=== PATIENT | male | born 1960 ===

== ENCOUNTER 2018-12-06 18:41 | Emergency (ER) | payer MEDICARE, OTHER, SELFPAY ==
[2018-12-06 18:46] VITALS: RESP 20
[2018-12-06] MEDS ORDERED: Sodium Chloride 0.9% 1,000 ML IV STA (19:29)
--- NOTE | 2018-12-06 19:35 | ED PDOC ---
HPI: Abdomen Time Seen by Provider: 12/06/18 19:19 Chief Complaint (Nursing): Abdominal Pain Chief Complaint (Provider): Abdominal Pain History Per: Patient History/Exam Limitations: no limitations Onset/Duration Of Symptoms: Days Current Symptoms Are (Timing): Still Present Location Of Pain/Discomfort: Periumbilical Additional Complaint(s): 58 y/o male with no significant PMHx presents to the ED for evaluation of abdominal pain associated with nausea, vomiting and diarrhea, onset last night. Patient reports of having about 4 episodes of non-bloody vomiting and multiple episodes of watery, non-bloody diarrhea. Otherwise, patient denies fever, sick contacts, recent travel and antibiotics. PMD: Bunny Chung Past Medical History Reviewed: Historical Data, Nursing Documentation, Vital Signs Vital Signs: Last Vital Signs Temp 97.9 F 12/06/18 18:43 Pulse 112 H 12/06/18 18:43 Resp 20 12/06/18 18:43 BP 147/73 12/06/18 18:43 Pulse Ox 98 12/06/18 18:43 - Medical History PMH: Diabetes, HTN, Hypercholesterolemia Denies: Chronic Kidney Disease - Surgical History Surgical History: No Surg Hx - Family History Family History: States: Unknown Family Hx - Social History Alcohol: Social - Immunization History Hx Tetanus Toxoid Vaccination: No Hx Influenza Vaccination: Yes Hx Pneumococcal Vaccination: No - Home Medications Home Medications: Ambulatory Orders Medication Instructions Recorded Meclizine [Meclizine*] 25 mg PO Q6 PRN #30 tab 11/22/16 Glimepiride [Amaryl] 4 mg PO BID 11/23/16 Linagliptin [Tradjenta] 5 mg PO DAILY 11/23/16 Lisinopril [Zestril] 2.5 mg PO DAILY 11/23/16 MetFORMIN [glucoPHAGE] 1,000 mg PO BID 11/23/16 Simvastatin 10 mg PO DAILY 11/23/16 Aspirin 81 mg PO DAILY #1 tab 11/26/16 Ciprofloxacin HCl [Cipro] 500 mg PO BID #14 tab 12/06/18 Dicyclomine [Dicyclomine HCl] 10 mg PO TID PRN #15 cap 12/06/18 Metronidazole [Flagyl] 500 mg PO BID #14 tablet 12/06/18 Ondansetron ODT [Zofran ODT] 4 mg PO Q8 PRN #12 odt 12/06/18 - Allergies Allergies/Adverse Reactions: Allergies Allergy/AdvReac Type Severity Reaction Status Date / Time No Known Allergies Allergy Verified 12/06/18 18:46 Review of Systems ROS Statement: Except As Marked, All Systems Reviewed And Found Negative Constitutional: Negative for: Fever Gastrointestinal: Positive for: Nausea, Vomiting, Abdominal Pain, Diarrhea Physical Exam - Reviewed Nursing Documentation Reviewed: Yes Vital Signs Reviewed: Yes - Physical Exam Appears: Positive for: No Acute Distress Head Exam: Positive for: ATRAUMATIC, NORMOCEPHALIC Skin: Positive for: Normal Color, Warm, Dry Eye Exam: Positive for: Normal appearance, EOMI, PERRL Neck: Positive for: Normal, Painless ROM, Supple Cardiovascular/Chest: Negative for: Bradycardia Respiratory: Negative for: Accessory Muscle Use, Respiratory Distress Gastrointestinal/Abdominal: Positive for: Tenderness (mild periumbilical tenderness) Extremity: Positive for: Normal ROM. Negative for: Deformity Neurologic/Psych: Positive for: Alert, Oriented. Negative for: Motor/Sensory Deficits - Laboratory Results Result Diagrams: 12/06/18 19:56 12/06/18 19:56 - ECG O2 Sat by Pulse Oximetry: 98 (RA) Pulse Ox Interpretation: Normal - Progress Re-evaluation Time: 22:33 Condition: Re-examined, Improved Medical Decision Making Medical Decision Making: Time: 1844 Impression: Abdominal pain, nausea, vomiting and diarrhea. Differentials include but not limited to acute colitis, gastroenteritis, small bowel obstruction and diverticulitis. Plan: -- EKG Time: 1927 Plan: -- CT Abd/Pelvis IV Contrast -- CMP -- Lipase -- CBC with Differentials -- Bentyl 10 mg PO -- Sodium Chloride 0.9% 1000 ml IV 1000 mls/hr -- Zofran Inj 4 mg IVP -- Blood Culture -- IV Insertion -- C Diff Toxin A B Time: 2142 CT RESULTS FINDINGS: LUNG BASES: The lung bases appear clear. No pleural effusions are seen. LIVER: There is mild hepatomegaly. The liver measured approximately 17.9 cm in the m idclavicular line. No hepatic mass detected. GALLBLADDER AND BILE DUCTS: The gallbladder appears within normal limits. No radioopaque gallstones are seen. No biliary ductal dilatation is evident. PANCREAS: Unremarkable. SPLEEN: Unremarkable. ADRENAL GLANDS: Unremarkable. KIDNEYS, URETERS, AND BLADDER: The kidneys appear within normal limits. There is no hydronephrosis or hydroureter. No urinary calculi are seen. STOMACH AND BOWEL: A small hiatal hernia is identified.Unremarkable appearance of the stomach. No evidence of bowel obstruction. There is diffuse mild mucosal wall thickening of the small intestinal tract measuring up to 2.6 mm transversely with associated mild thickening of the valvulae conniventes. These findings are compatible nonspecific enteritis. Additionally, there is mild mucosal wall thickening of the right and transverse colon. These findings suggest nonspecific colitis. APPENDIX: No evidence of acute appendicitis on CT examination. PERITONEUM: No free fluid. No free air. A small left inguinal hernia is present which contains fat. LYMPH NODES: No lymphadenopathy is evident. REPRODUCTIVE: Unremarkable as visualized. VASCULATURE: No evidence of abdominal aortic aneurysm. Moderate atherosclerotic vascular plaquing is present. BONES: No aggressive appearing osseous lesion. No acute osseous pathology evident. IMPRESSION: 1. Severe enterocolitis. Infectious or inflammatory etiologies are thought most likely. 2. A small hiatal hernia is present. 3. Mild hepatomegaly. Measurement is given above. 4. A small left inguinal hernia is noted which contains fat. 5. Moderate atherosclerotic vascular plaquing is present. Electronically signed on Dec 06, 2018 9:43:17 PM EST by: Kp Martinez M.D., MBA Certified By [employer] & [employer] Fellowship Trained MRI and CT Specialist Scribe Attestation: Documented by Lucita De Oliveira, acting as a scribe for Dontrell Gamez MD. Provider Scribe Attestation: All medical record entries made by the Scribe were at my direction and personally dictated by me. I have reviewed the chart and agree that the record accurately reflects my personal performance of the history, physical exam, medical decision making, and the department course for this patient. I have also personally directed, reviewed, and agree with the discharge instructions and disposition. Disposition - Clinical Impression Clinical Impression: Enterocolitis - Patient ED Disposition Is Patient to be Admitted: No Doctor Will See Patient In The: Office Counseled Patient/Family Regarding: Studies Performed, Diagnosis, Need For Followup - Disposition Referrals: Bunny Chung MD [Family Provider] - Disposition: Routine/Home Disposition Time: 22:33 Condition: GOOD Additional Instructions: CAMDEN PERKINS, thank you for letting us take care of you today. Your provider was Dontrell Gamez MD and you were treated for ABD PAIN, VOMOTING,DIARRHEA. The emergency medical care you received today was directed at your acute symptoms. If you were prescribed any medication, please fill it and take as directed. It may take several days for your symptoms to resolve. Return to the Emergency Department if your symptoms worsen, do not improve, or if you have any other problems. Please contact your doctor or call one of the physicians/clinics you have been referred to that are listed on the Patient Visit Information form that is included in your discharge packet. Bring any paperwork you were given at discharge with you along with any medications you are taking to your follow up visit. Our treatment cannot replace ongoing medical care by a primary care provider outside of the emergency department. Thank you for allowing the [facility] team to be part of your care today. If you had an X-Ray or CT scan: A Radiologist will review the ED reading if any change in treatment is needed we will contact you. If you had a blood, urine, or wound culture: It will take several days for the results, if any change in treatment is needed we will contact you. If you had an STI test: It will take 48 hours for the results. Please call after 1 week if you have not heard back. Prescriptions: Ciprofloxacin HCl [Cipro] 500 mg PO BID #14 tab Dicyclomine [Dicyclomine HCl] 10 mg PO TID PRN #15 cap PRN Reason: Diarrhea Metronidazole [Flagyl] 500 mg PO BID #14 tablet Ondansetron ODT [Zofran ODT] 4 mg PO Q8 PRN #12 odt PRN Reason: Nausea/Vomiting Instructions: Colitis (DC) Print Language: UKRAINIAN
[2018-12-06] MEDS ORDERED: Iohexol 300 100 ML IJ ONE (19:56)
[2018-12-06 20:00] LABS: BASO % 0.2 % (0.0-2.0); EOS % 0.4 % (0.0-4.0); HEMOGLOBIN 13.9 g/dL (12.0-18.0); LYMPH # 0.6 K/uL (1.0-4.3); LYMPH % 7.7 % (20.0-40.0); MEAN CELL VOLUME 90.1 fl (80.0-94.0); MEAN CORPUSCULAR HEMOGLOBIN 30.9 pg (27.0-31.0); MEAN CORPUSCULAR HGB CONC 34.3 g/dL (33.0-37.0); MONO # 0.4 K/uL (0.0-0.8); MONO % 5.6 % (0.0-10.0); NEUT # 6.2 K/uL (1.8-7.0); NEUT % 86.1 % (50.0-75.0); PLATELET COUNT 226 K/uL (130-400); RBC 4.51 Mil/uL (4.40-5.90); RED CELL DISTRIBUTION WIDTH 13.1 % (11.5-14.5); WHITE BLOOD COUNT 7.2 K/uL (4.8-10.8)
[2018-12-06 20:41] LABS: ALB/GLOB RATIO 1.1 (1.0-2.1); ALBUMIN 4.1 g/dL (3.5-5.0); ALT/SGPT 38 U/L (21-72); AST/SGOT 29 U/L (17-59); BLOOD UREA NITROGEN 32 mg/dl (9-20); CALCIUM 8.8 mg/dL (8.4-10.2); GFR NON-AFRICAN AMERICAN > 60; LIPASE 43 U/L (23-300)
[2018-12-06 20:49] LABS: BANDS 5 % (0-2); LYMPHOCYTE 10 % (20-50); MONOCYTE 3 % (0-10); NEUTROPHIL 82 % (42-75); TOTAL CELLS COUNTED 100
[2018-12-06 20:50] LABS: PLATELET ESTIMATE NORMAL (NORMAL)
[2018-12-06 22:50] VITALS: BP 138/70; PULSE 98; TEMP 98.2; O2SAT 99
--- NOTE | 2018-12-07 11:41 | CT ---
Date of service: 12/06/2018 PROCEDURE: CT Abdomen and Pelvis . HISTORY: Abdominal pain vomiting diarrhea COMPARISON: None. TECHNIQUE: Contiguous axial images of the abdomen and pelvis performed following intravenous injection of approximately 95 cc Omnipaque 300 contrast material. Additional 2D sagittal and coronal reformats. Generated. Radiation dose: Total exam DLP = 711.03 mGy-cm. This CT exam was performed using one or more of the following dose reduction techniques: Automated exposure control, adjustment of the mA and/or kV according to patient size, and/or use of iterative reconstruction technique. FINDINGS: LOWER THORAX: Heart is mildly enlarged. No significant pericardial effusion. There is a small hiatal hernia with slight wall thickening of distal esophagus likely due to protrusion gastric mucosa. Esophagitis not excluded. Mild passive/dependent type atelectasis both posterior lower lung bertrand. LIVER: The liver is mildly enlarged measuring nearly 19 cm in CC dimension. Mild diffuse fatty hepatic infiltration. No obvious hepatic mass collection or calcification. Portal and splenic veins are opacified. Cysts GALLBLADDER AND BILE DUCTS: Gallbladder is moderately distended. No evidence of intraluminal gallbladder calculi. Common bile duct appears slightly dilated at the level of pancreatic head PANCREAS: Pancreas is mildly atrophic and fatty replaced. No obvious pancreatic masses or collections.. The proximal pancreatic duct at the level of the pancreatic head is also slightly dilated. SPLEEN: Unremarkable. No splenomegaly. ADRENALS: No adrenal lesions. The the KIDNEYS AND URETERS: Kidneys demonstrate relatively symmetric nephrograms. No evidence of nephrolithiasis or hydronephrosis. BLADDER: Urinary bladder is appears incompletely distended which presumably in part accounts for slight thick-walled appearance. Muscular hypertrophy may contribute. Correlation with urinalysis recommended to exclude cystitis or other intrinsic/invasive wall lesion.. REPRODUCTIVE: Prostate gland measures approximately 4 cm transverse dimension. APPENDIX: The appendix not positively identified however no inflammation seen in the right lower quadrant of the abdomen to suggest acute appendicitis. BOWEL: Evaluation of the bowel is somewhat limited due to the lack of oral contrast material. The stomach is distended with food debris liquid and air. Slight wall thickening with prominent rugal folds suggesting gastritis. In addition, there are multiple fluid-filled in relatively nondistended loops of small bowel exhibit wall thickening as well suggesting enteritis. Small amount of fluid is also present within the cecum and proximal ascending colon suggesting mild localized colitis as well. PERITONEUM: Unremarkable. No fluid collection. No free air. Small fat containing umbilical hernia. Small bilateral fat containing inguinal hernias left slightly larger than right. LYMPH NODES: Unremarkable. No enlarged lymph nodes. VASCULATURE: Unremarkable. No aortic aneurysm. Mild aortic atherosclerotic calcification or mural plaque present. BONES: No fracture or destructive lesion. OTHER FINDINGS: None. IMPRESSION: Findings consistent with a gastroenteritis. Fluid is present within the cecum which also exhibits minimal prominent enhancing wall suggesting a localized colitis as well. Borderline/mild hepatomegaly with fatty infiltration. Slight dilatation of the common bile duct and proximal pancreatic duct. Consider follow-up ERCP MRCP if necessary. Mild bladder wall thickening likely due to incomplete distention and muscular hypertrophy however correlation with urinalysis recommended to exclude cystitis or other intrinsic/invasive wall lesion.
--- NOTE | 2018-12-07 21:44 | CARD ---
APPROVED REPORT Date of service: 12/06/2018 EKG Measurement Heart [id number] <Conclusion> Normal sinus rhythm Normal ECG
== END 2018-12-06 22:50 | disposition home or self-care (01) ==
LOC: H.ER 18:41
DX: K52.9 Noninfective gastroenteritis and colitis, unspecified (principal); E11.9 Type 2 diabetes mellitus without complications; I10 Essential (primary) hypertension; E78.00 Pure hypercholesterolemia, unspecified; R16.0 Hepatomegaly, not elsewhere classified; K44.9 Diaphragmatic hernia without obstruction or gangrene; K40.90 Unilateral inguinal hernia, without obstruction or gangrene, not specified as recurrent; Z79.84 Long term (current) use of oral hypoglycemic drugs
CPT/HCPCS: 74177; 80053; 83690; 85025; 87040; 93005; 96374; 99283; J2405; J7030; Q9967